=== PATIENT | female | born 1975 | race Caucasian/White ===

== ENCOUNTER → 2017-06-11 | Outpatient (CLI) | payer OTHER | END | disposition home or self-care (01) | LOC: C.LABMFLN 14:54 | PROVIDERS: ATTEND Family Medicine | DX: J02.9 Acute pharyngitis, unspecified (principal) ==

== ENCOUNTER → 2018-05-02 | Outpatient (CLI) | payer OTHER ==
--- NOTE | 2018-05-03 06:32 | PAP/PSG TECHNICIAN REPORT ---
[facility] Talent Acquisition Director Polysomnogram Report Study name: None Report date: 05/03/2018 Study date: 05/02/2018 Referring Physician: Dr. Ricky Nowak DO Name: HUNG KIRBY Interpreting Physician: Ricky Nowak D.O. Date of : 1975 Talent Acquisition Director: Kathy Ferrell RPSGT. Sex: Female Age: 42 Study Type: PSG Weight: 144 lbs Height: 42 years, Height 5' 7" BMI: 22.55 Medications: MONTELUKAST 10 MG, VENTOLIN HFA, DICYCLOMINE 10 MG, MECLIZINE 25 MG, METOPROLOL 25 MG Patient History 42 yr-old female here for a baseline study. She has a history of sleep maintenance insomnia, loud snoring, witnessed apneas, and movements while asleep. Her [place] scale is 0. The test was started on room air. ETCO2 testing is included in this study. Room 3 Parameters Monitored NPSG: E1-M2, E2-M1, Fp1-M2, Fp2-M1, F3-M2, F4-M2, F4-M1, C3-M2, C4-M2, C4-M1, O1-M2, O2-M2, O2-M1, T3-M2, T4-M1, P3-M2, P4-M1, CHIN1, CHIN2, HR, EKG, Legs, PFLOW, SNOR, FLOW, CFLOW, Tidal Volume, THOR, ABDO, SpO2, PLTH, CPRESS, ETCO2 Wave, ETCO2, pH Sleep Architecture Sleep Stages Time at Lights Off 10:11:07 PM STAGES Time (min.) TST (%) Time at Lights On 5:31:37 AM Wake 125.0 -- Total Recording Time (TRT) 440.50 min. N1 27.5 9 Total Sleep Period (TSP) 325.0 min. N2 174.0 55 Total Sleep Time (TST) 315.5min. N3 28.0 9 Awake Time 125.0 min. REM 86.0 27 Wake after Sleep Onset 9.5 min. Sleep Efficiency (SE) 72 % Sleep Onset Latency (MIKHAIL) 115.5 min. Number of Stage 1 Shifts None Awakenings 13 Stage Changes 59 Number of REM periods 3 REM 86.0 27 REM Latency 70.5 min. NREM 229.5 73 Body Position Analysis Supine Right Left Side Prone Vertical Total Sleep Time (min.) 136.7 203.8 0.0 203.76 0.0 0.0 Total Sleep Time (%) 35% 65% 0% 65 0% N/A% Total Sleep Time REM (min.) 55.7 30.3 0.0 None 0.0 0.0 Total Sleep Time NREM (min.) 56.0 173.5 0.0 None 0.0 0.0 Intermittent Wake (min.) 24.9 67.1 33.0 None 0.0 0.0 Total Sleep Period (%) 36% None None None None None Arousals Myoclonus (PLM) * Events Count Index Events Count Index Spontaneous 19 4 Events Awake (PLMW) 101 48.5 Respiratory 1 0.2 Events Asleep w/ Arousal (PLMA) 12 2.3 PLM 12 2 Events Asleep w/o Arousal (PLMS) 17 3.2 Snoring 2 0 Total Asleep 29 5.5 Total 34 6 Total 130 18 Respiratory Analysis * CA OA MA CH H RERA Total Count 0 0 0 0 2 0 2 Index 0.0 0.0 0.0 0 0.4 0 0.4 Mean Duration 0.0 0.0 0.0 0.00 20.3 0.0 20.3 Longest Duration 0.0 0.0 0.0 0.00 0.0 0.0 28.2 Respiratory Event Summary Total Supine ~Supine Right Left Prone REM NREM Apneas Count 0 0 0 0 N/A N/A 0 0 Index 0.0 0 0 0.0 N/A N/A 0 0 Hypopneas (4% Desat) Count 2 1 1 1 N/A N/A 1 1 Index 0.4 0.5 0 0.3 N/A N/A 0.7 0.3 Apneas & All Hypopneas Count 2 1 1 1 N/A N/A 1 1 Index 0.4 1 0 0 N/A N/A 0.7 0.3 Respiratory Events (Whipped Topping Mixer+All Hyp+RERA) Count 2 1 1 1 N/A N/A 1 1 Index 0.4 1 0 0.3 N/A N/A 0.7 0.3 Respiratory Related Arousal Count 1 1 0 0 N/A N/A 0 1 Index 0.2 1 0 0 N/A N/A 0 0 Snoring Analysis Supine Right Left Prone REM NREM Total Snore duration 5.6 min Snores count 293 4 N/A N/A 6 291 297 Snore mean duration 1.1 Sec Snores index 157 1 N/A N/A 4.2 76.1 56.5 TST with snoring (%) 1.8% SpO2 Analysis Total REM NREM Awake <50% 0.0 min. 0.0 min. 0.0 min. 0.0 min. 51 - 60% 0.0 min. 0.0 min. 0.0 min. 0.0 min. 61 - 70% 0.0 min. 0.0 min. 0.0 min. 0.0 min. 71 - 80% 0.0 min. 0.0 min. 0.0 min. 0.0 min. 81 - 90% 55.0 min. 30.8 min. 23.3 min. 0.9 min. 91 - 100% 380.8 min. 55.2 min. 205.9 min. 119.7 min. Average 93 92 92 95 Minimum SpO2 81 87 89 81 Desaturation Event Index 0.8 0.7 0.5 1.9 # Desat. Events below 89% 1 N/A N/A 1 Time(%) with Saturation below 89% 1.7 1.6 0.0 0.1 Time(min.) with Saturation below 89% 7.5 7.0 0.0 0.5 Heart Rate Analysis End Tidal CO2 Analysis Min (bpm) Max (bpm) Average (bpm) TSP (mins) % of TSP Awake 34 83 54 Above 55 mmHg 0.0 0.0 NREM 34 77 52 50-55 mmHg 0.0 0.0 REM 34 70 51 45-50 mmHg 0.0 0.0 Overall 34 77 51 40-45 mmHg 0.2 0.1 35-40 mmHg 8.9 2.8 30-35 mmHg 93.0 29.5 Average ETCO2 0.0 Supplemental O2 Values Minimum O2 level: None Value Start Time End Time Talent Acquisition Director Comments Ms. Kirby slept in the right, left, and supine positions. Cardiac arrhythmias were noted (please refer to the printouts). No PLMs were noted. No bruxism noted. Snoring was noted and scored as a 2 on a scale of 1 through 5. (0=no snoring, 5=snoring loud enough to be heard through a closed door or down the [address]). She awoke to use the restroom one time during the night. Ms. Kirby stated that she felt as though she did not sleep at all. The final report will be interpreted and signed by a sleep physician. The completed physician report will then be placed in the patient medical record. Therapy (cm H2O) 0 TIB (min.) 440.5 TST (min.) 315.5 Sleep Onset (min.) 115.5 REM Onset From Sleep (min.) 70.5 Sleep Efficiency % 72 Wakefulness (%) 28 Wakefulness (min.) 125.0 NREM 1 (%) 9 NREM 1 (min.) 27.5 NREM 2 (%) 55 NREM 2 (min.) 174.0 NREM 3 (%) 9 NREM 3 (min.) 28.0 REM (%) 27 REM (min.) 86.0 # Arousals 34 Arousal Index 6 # Snore 297 Snore Index 56.5 AHI 0.4 AHI Supine 1 AHI Non-Supine 0 NREM AHI 0.3 REM AHI 0.7 RDI 0.4 # Obstructive Apnea 0 # Central Apnea 0 # Mixed Apnea 0 # Hypopneas 2 RERAs 0 Total Respiratory Events 3 Time Below SpO2 89% (min.) 7.0 Mean NREM SpO2 (%) 92 Mean REM SpO2 (%) 92 Mean Sleep SpO2 (%) 92 Min NREM SpO2 (%) 89 Min REM SpO2 (%) 87 Position Supine (min.) 136.7 Position Non-supine (min.) 203.8 LM Index Sleep 5.5 LM Index NREM 3.7 LM Index REM 10.5 Mean Heart Rate (bpm) 51 Min Heart Rate (bpm) 34
--- NOTE | 2018-05-05 22:31 | POLYSOMNOGRAPH REPORT ---
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 She is referred with symptoms including snoring, observed apneas, and daytime tiredness. She also has insomnia. In spite of the insomnia, her [place] sleepiness scale score is 0. This was an in-lab overnight polysomnography. SLEEP ARCHITECTURE: The total sleep period was 325 minutes. The total sleep time was 315.5 minutes. The sleep latency was severely prolonged at 115.5 minutes. The sleep efficiency is moderately reduced to 72%. Wake after sleep onset was 9.5 minutes. Sleep consisted of stage N1 9%, stage N2 55%, stage N3 9%, stage REM 27%. AROUSAL DATA: The patient had a total of 34 arousals including 2 snoring, 12 PLM, 1 respiratory, and 19 spontaneous arousals. The arousal index was 6. PLM DATA: The patient had a total of 29 periodic limb movements for a PLM index of 5.5. There were 12 arousals, associated with limb movements for a PLM arousal index of 2.3. EKG: The underlying cardiac rhythm was normal sinus. There were at least moderate extrasystoles noted. These were either PVCs or supraventricular premature contractions with aberrancy. At times, she had runs of bigeminy. The cardiac rates ranged from 34-77 beats per minute with an average heart rate of 51 beats per minute. RESPIRATORY DATA: The patient had a total of only 2 respiratory events, both of which were hypopneas. Hypopneas were scored according to the 4% desaturation rule. The mean duration of the hypopneas was 20.3 seconds. The apnea-hypopnea index was 0.4. This would reflect no significant sleep apnea. OXIMETRY DATA: The average saturation was 93%. The minimum saturation was 81%, but it did appear to be artifact. There was a total of 7.5 minutes with saturations less than 89% and these appeared to be predominantly artifactual. The actual minimum saturation appears to be 88%. SIGNAL MAINTENANCE TECHNICIAN COMMENTS: Ms. Reno slept in the right, left, and supine positions. Cardiac arrhythmias were noted. No bruxism noted. Snoring was noted and scored as a 2 on a scale of 1 through 5. She awoke to use the restroom one time during the night. Ms. Reno stated that she felt as though she did not sleep at all. IMPRESSION: 1. Primary snoring. 2. Sleep onset insomnia. 3. Cardiac arrhythmia. COMMENTS: The patient took almost 2 hours to initiate sleep. After that her sleep was well consolidated. Her sleep architecture was reasonable. She had no significant sleep apnea. There was no significant oxygen desaturation. She had minimal limb movements. There was a history of the patient having a parasomnia involving lifting her arm in the air and then stroking the upper arm with the opposite arm. This was not observed during the study. RECOMMENDATIONS: 1. It is advised that the patient avoid sleeping in the supine position. Typically, there is more snoring while supine and then in other positions. 2. If snoring is a major issue for her, in light of the fact she did not have sleep apnea, consideration could be given to an ENT evaluation. 3. The patient has cardiac arrhythmia as noted. Advise clinical correlation. Consideration could be given to doing a Holter monitor if clinically indicated. This is deferred to her primary physician.
== END | disposition home or self-care (01) ==
LOC: C.NEUR 21:00
PROVIDERS: ATTEND Internal Medicine Pulmonary Disease
DX: R06.83 Snoring (principal); G47.09 Other insomnia; I49.9 Cardiac arrhythmia, unspecified